=== PATIENT | female | born 1985 | race African-American/Black ===

== ENCOUNTER 2018-07-29 10:00 | Emergency (ER) | payer MEDICAID, OTHER ==
[~2018-07-29] VITALS: Ht 147.3 cm; Wt 59.0 kg
[2018-07-29] MEDS ORDERED: PREDNISONE 20MG TABLET PO ONE (11:30)
[2018-07-29] MEDS ORDERED: HYDROCODONE/ACETAMINOPHEN 5/325MG TABLET PO ONE (11:30)
[2018-07-29 12:15] VITALS: BP 125/83
== END 2018-07-29 12:43 | disposition home or self-care (01) ==
LOC: ER 10:00
DX: M32.9 Systemic lupus erythematosus, unspecified (principal); R03.0 Elevated blood-pressure reading, without diagnosis of hypertension
CPT/HCPCS: 99283; J7512; J7030

== ENCOUNTER 2018-10-09 12:50 | Emergency (ER) | payer OTHER ==
[~2018-10-09] VITALS: Ht 147.3 cm; Wt 61.0 kg
[2018-10-09] MEDS ORDERED: HYDROCODONE/ACETAMINOPHEN 5/325MG TABLET PO ONE (14:15)
[2018-10-09] MEDS ORDERED: PREDNISONE 20MG TABLET PO ONE (14:15)
[2018-10-09 15:40] VITALS: BP 112/74
== END 2018-10-09 15:49 | disposition home or self-care (01) ==
LOC: ER 12:50
DX: M32.9 Systemic lupus erythematosus, unspecified (principal); M79.18 Myalgia, other site; Z98.890 Other specified postprocedural states; Z88.6 Allergy status to analgesic agent
CPT/HCPCS: 99283; J7512

== ENCOUNTER 2018-11-13 12:25 | Emergency (ER) | payer OTHER ==
[~2018-11-13] VITALS: Ht 147.3 cm; Wt 61.0 kg
[2018-11-13 13:06] VITALS: BP 132/84
== END 2018-11-13 20:47 | disposition left against medical advice (07) ==
LOC: ER 12:37
DX: Z53.21 Procedure and treatment not carried out due to patient leaving prior to being seen by health care provider (principal)

== ENCOUNTER 2018-12-07 16:59 | Emergency (ER) | payer OTHER ==
[~2018-12-07] VITALS: Ht 147.3 cm; Wt 60.0 kg
[2018-12-07 18:45] VITALS: BP 128/77
== END 2018-12-07 18:50 | disposition home or self-care (01) ==
LOC: ER 17:09
DX: M32.8 Other forms of systemic lupus erythematosus (principal); M25.542 Pain in joints of left hand; M25.541 Pain in joints of right hand; Z88.6 Allergy status to analgesic agent; Z98.890 Other specified postprocedural states
CPT/HCPCS: 99283

== ENCOUNTER 2019-04-20 19:28 | Emergency (ER) | payer OTHER ==
[~2019-04-20] VITALS: Ht 147.3 cm; Wt 59.0 kg
[2019-04-20] MEDS ORDERED: ONDANSETRON HCL 4MG/2ML INJ IV STA (20:28)
[2019-04-20] MEDS ORDERED: SODIUM CHLORIDE 0.9% 1,000 ML IV ONE (20:28)
[2019-04-20] MEDS ORDERED: MORPHINE SULFATE 4 MG/ML CPJ (NOT FOR IM USE) IV STA (20:28)
[2019-04-20 20:51] LABS: BASOPHILS % 1.2 % (0.0-2.0); EOSINOPHILS % 5.8 % (0.0-5.0); HEMATOCRIT. 35.4 % (36.0-48.0); HEMOGLOBIN. 11.3 g/dL (12.0-16.0); LYMPHOCYTES % 26.7 % (20.0-50.0); MEAN CORPUSCULAR HEMOGLOBIN 26.6 pg (28.0-32.0); MEAN CORPUSCULAR VOLUME 83.3 fL (81.0-99.0); MEAN PLATELET VOLUME 9.3 fl (7.4-10.4); MONOCYTES % 7.3 % (2.0-8.0); PLATELET 250 x1000/uL (130-400); RED BLOOD CELL COUNT 4.24 mill/uL (4.2-5.4); RED CELL DISTRIBUTION WIDTH 16.4 % (11.6-14.6)
[2019-04-20 20:56] LABS: CHLORIDE 109 mEq/L (98-107)
[2019-04-20 21:00] LABS: ETHANOL BLOOD < 10 mg/dL
[2019-04-20 21:04] LABS: HCG SCREEN NEGATIVE
[2019-04-20 21:05] LABS: CREATINE KINASE 69 IU/L (26-192)
[2019-04-20 21:08] LABS: CREATINE KINASE MB FRACTION < 1.0 ng/mL (0.5-3.6)
[2019-04-20 21:36] LABS: *AMPHETAMINES SCREEN URINE NEGATIVE (NEGATIVE); *BARBITURATES SCREEN URINE NEGATIVE (NEGATIVE); *BENZODIAZEPINES SCREEN URINE NEGATIVE (NEGATIVE); *COCAINE SCREEN URINE NEGATIVE (NEGATIVE); METHADONE URINE SCREEN NEGATIVE (NEGATIVE); OPIATES URINE SCREEN NEGATIVE (NEGATIVE)
[2019-04-20 21:37] LABS: PHENCYCLIDINE URINE SCREEN NEGATIVE (NEGATIVE)
[2019-04-20 21:53] LABS: CANNABINOID URINE SCREEN PRESUMTIVE POSITIVE (NEGATIVE)
[2019-04-20 22:42] VITALS: BP 112/65
== END 2019-04-20 22:45 | disposition home or self-care (01) ==
LOC: ER 19:28
DX: M32.8 Other forms of systemic lupus erythematosus (principal); E86.0 Dehydration; M25.50 Pain in unspecified joint
CPT/HCPCS: 36415; 80053; 80305; 80320; 82550; 82553; 83690; 83880; 84484; 84703; 85025; 96361; 96374; 96375; 99283; J2270; J2405; J7030; Z7610; G0480